=== PATIENT | male | born 1955 | race Caucasian/White ===

== ENCOUNTER 2025-09-07 20:02 | Emergency (ER) | payer SELFPAY ==
[2025-09-07 20:09] VITALS: BP 195/81
[2025-09-07 21:37] VITALS: BMI 29.6
[2025-09-07 21:44] VITALS: BP 165/64
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
[2025-09-07] MEDS: MOTRIN 600 MG PO (22:12)
== END 2025-09-07 22:20 | disposition home or self-care (01) ==
LOC: EMR 20:02
PROVIDERS: EMERGENCY PHYSICIAN Student in an Organized Health Care Education/Training Program; FAMILY PHYSICIAN Internal Medicine
DX: Z04.1 Encounter for examination and observation following transport accident (principal); I49.3 Ventricular premature depolarization; R03.0 Elevated blood-pressure reading, without diagnosis of hypertension; V47.0XXA Car driver injured in collision with fixed or stationary object in nontraffic accident, initial encounter; Y92.410 Unspecified street and highway as the place of occurrence of the external cause
CPT/HCPCS: 99283; 71046; 73610; 93005